=== PATIENT | female | born 2000 | race Caucasian/White ===

== ENCOUNTER 2020-08-24 19:46 | Emergency (ER) | payer OTHER ==
[~2020-08-24] VITALS: Ht 165.1 cm; Wt 74.8 kg
[2020-08-24] MEDS ORDERED: KEFLEX500 M1 PO (20:27)
[2020-08-24] MEDS ORDERED: APAP W/CODEINE1 TA2 PO (20:29)
[2020-08-24 20:50] VITALS: BP 117/84
== END 2020-08-24 20:50 | disposition home or self-care (01) ==
LOC: M.ERS 19:46
DX: S61.211A Laceration without foreign body of left index finger without damage to nail, initial encounter (principal); W45.8XXA Other foreign body or object entering through skin, initial encounter; Y93.89 Activity, other specified; Y92.89 Other specified places as the place of occurrence of the external cause; Y99.9 Unspecified external cause status